=== PATIENT | male | born 1935 | race Caucasian/White ===

== ENCOUNTER 2016-07-06 11:16 | Day surgery (SDC) | payer MEDICARE ==
[2016-07-02 18:51] LABS: HEMOGLOBIN 12.9 g/dL (13.6-17.8)
[2016-07-02 19:00] LABS: CALCIUM, SERUM 9.7 MG/DL (8.5-10.4); CHLORIDE, SERUM 104 MMOL/L (96-112); CO2 (CARBON DIOXIDE) 31 MMOL/L (24-34); CREATININE 0.85 MG/DL (0.70-1.30); GFR AFRICAN AMERICAN 97 ML/MIN (>=60); GFR NON AFRICAN AMERICAN 83 ML/MIN (>=60); GLUCOSE, SERUM 89 MG/DL (60-99); POTASSIUM, SERUM 4.2 MMOL/L (3.5-5.3); SODIUM, SERUM 143 MMOL/L (135-148)
[2016-07-02 19:01] LABS: BUN (BLOOD UREA NITROGEN) 12 MG/DL (6-23)
--- NOTE | ~2016-07-06 | OP ---
Record Of Operation [facility] [address] [place]. [address] NAME: KOLTON LARSEN : 39 STATUS : [facility]#: [id number] AGE: 80 ADM/REG DATE : 07/06/16 MR#: [id number] REPORT SERV DATE: 07/06/16 DICTATED BY: SHAAN YOO III DATE: 07/06/16 REPORT STATUS : Draft TRANSCRIBED BY: MODL DATE: 07/06/16 DATE OF PROCEDURE: 07/06/2016 PREOPERATIVE DIAGNOSIS: Elevated prostate-specific antigen. POSTOPERATIVE DIAGNOSES: 1. Elevated prostate-specific antigen. 2. Enlarged prostate gland. PROCEDURES: 1. Transrectal ultrasound of the prostate. 2. Ultrasound guidance. 3. Needle biopsy of the prostate gland. SURGEON: Shaan Yoo M.D. ANESTHESIA: MAC. BLOOD LOSS: Minimal. SPECIMEN: Prostate biopsy x12. INDICATION: Mr. Larsen is a 80-year-old white male who has a PSA of 66. This is quality control representative of a considerable jump from previously, although it has been high in the past. Consent is obtained for prostate biopsy. He has taken his prophylactic antibiotics. DESCRIPTION OF PROCEDURE: After consent was obtained, the patient was identified and was taken to the OR and placed in the left lateral decubitus position. MAC anesthesia was administered. The ultrasound probe was then inserted. The 3-dimensional volume was 87.29 mL. Ultrasound guidance was activated and needle biopsy was performed. There were two cores taken from each of the right and left base, mid gland, and apex. There was no excessive bleeding noted. The hemorrhoid roll was then inserted into the rectum. The patient was taken to phase 2 recovery in stable condition. PH/MODL Shaan Yoo III, M.D. / [id number] CC: Pete Robles III, M.D.
[~2016-07-06 11:16] MED LIST: CELEXA20 PO; DYAZIDE1 CAP PO; FLOMAX4 PO; FOLIC PO; LORT7 PO; LORTAB 5 PO; MAX25 PO; METAMUCIL CAN7 OZ PO; PRILOSEC40 MG PO; REM15 PO; ULTRAM50 PO; ZOCOR20 PO
== END 2016-07-06 15:03 | disposition home or self-care (01) ==
LOC: SDC 11:16
PROVIDERS: Urology
PROC: 0VB07ZX Excision of Prostate, Via Natural or Artificial Opening, Diagnostic (ICD-10-PCS; principal; 2016-07-06 12:45)
DX: C61 Malignant neoplasm of prostate (principal); I10 Essential (primary) hypertension; E78.00 Pure hypercholesterolemia, unspecified; F32.9 Major depressive disorder, single episode, unspecified; Z98.1 Arthrodesis status; Z96.649 Presence of unspecified artificial hip joint; Z96.1 Presence of intraocular lens; Z98.41 Cataract extraction status, right eye; Z98.42 Cataract extraction status, left eye; Z86.010 Personal history of colon polyps; Z87.891 Personal history of nicotine dependence; Z79.891 Long term (current) use of opiate analgesic; Z79.899 Other long term (current) drug therapy; Z98.890 Other specified postprocedural states
CPT/HCPCS: 76872; 76942; 80048; 85014; 85018; 88305; 93005